=== PATIENT | female | born 1970 | race Caucasian/White ===

== ENCOUNTER 2017-02-22 19:09 | Emergency (ER) | payer MEDICARE, OTHER ==
[~2017-02-22] VITALS: Ht 165.1 cm; Wt 59.0 kg
[~2017-02-22 19:09] MED LIST: DIVA125T2 PO; VENL25TA4 PO
[2017-02-22 19:17] VITALS: BP 121/77
[2017-02-22] MEDS ORDERED: VENLAFAXINE 37.5 MG TABLET PO ONE (19:30)
[2017-02-22] MEDS ORDERED: VENLAFAXINE XR 150 MG CAP.SR.24H ONE ×2 (19:34→19:37)
[2017-02-22] MEDS ORDERED: ONDANSETRON 4 MG TAB.RAPDIS ONE (19:37)
[2017-02-22] MEDS ORDERED: FAMOTIDINE (20 MG) 20 MG TABLET PO STA (19:41)
[2017-02-22] MEDS ORDERED: VENLAFAXINE XR 150 MG CAP.SR.24H PO STA (19:41)
[2017-02-22] MEDS ORDERED: ONDANSETRON 4 MG TAB.RAPDIS SL STA (19:41)
--- NOTE | 2017-02-22 19:42 | NUR ---
PT VOMITED THE INITIAL EFFEXOR; NEW ONE VERBALLY ORDERED BY MARCEL/JOSE WEL ZOFRAN ODT 4MG.
== END 2017-02-22 19:46 | disposition home or self-care (01) ==
LOC: ER 19:09
DX: Z76.0 Encounter for issue of repeat prescription (principal); F31.9 Bipolar disorder, unspecified; F43.10 Post-traumatic stress disorder, unspecified; F17.200 Nicotine dependence, unspecified, uncomplicated; F41.9 Anxiety disorder, unspecified
CPT/HCPCS: A4606; Q0162; Z7610

== ENCOUNTER 2023-05-11 13:32 | Emergency (ER) | payer MEDICARE, OTHER ==
[~2023-05-11] VITALS: Ht 170.2 cm; Wt 72.6 kg
[~2023-05-11 13:32] MED LIST changes: +DIVA500T2 GT; +VENL150C2 PO
[2023-05-11 14:05] VITALS: BP 116/81; TEMP 98.2; O2SAT 97
== END 2023-05-11 15:33 | disposition left against medical advice (07) ==
LOC: ER 13:40
DX: R06.02 Shortness of breath (principal); M25.511 Pain in right shoulder; R07.81 Pleurodynia; M25.512 Pain in left shoulder; R19.7 Diarrhea, unspecified; Z53.21 Procedure and treatment not carried out due to patient leaving prior to being seen by health care provider